=== PATIENT | male | born 1970 | race Caucasian/White ===

== ENCOUNTER 2022-09-11 02:48 | Emergency (ER) | payer BC, SELFPAY ==
--- NOTE | ~2022-09-11 | CT_ITS ---
Non-contrast CT scan of the Abdomen and Pelvis Clinical indication: Abdominal pain Technique: 5 mm axial scans were obtained through the abdomen and pelvis without intravenous or oral contrast. Dose reduction technique was used on this scan by utilizing automated exposure control and iterative reconstruction technique. The dose-length product (DLP) was 517.18 mGy-cm. Findings: Images through the lung bases reveal no abnormalities. There is no evidence of renal or ureteral calculi. The kidneys and the ureters are nondilated. The liver, spleen, pancreas, and adrenals appear normal. Cholecystectomy clips are present. There is no aortic aneurysm. There is no evidence of bowel obstruction. No evidence for appendicitis. Images through the pelvis were performed. There is no evidence of ascites or lymphadenopathy. Urinary bladder unremarkable. Prostate gland and seminal vesicles are unremarkable. Impression: No significant abnormality seen. Status post cholecystectomy. Reviewed, dictated and finalized at [facility]. SUPERVISOR Impression: No significant abnormality seen. Status post cholecystectomy.
[2022-09-11 02:50] VITALS: BP 139/83; PULSE 81; RESP 20; TEMP 36.3; O2SAT 100
--- NOTE | 2022-09-11 03:11 | ED.GENADULT ---
HPI - General Adult General Chief complaint: Nausea/Vomiting/Diarrhea Stated complaint: vomitting History of Present Illness HPI narrative: the patient is a 52-year-old male who developed atrial fibrillation and flutter as well as a depressed ejection fraction as low as 13%. With medical management, Entresto, Jardiance, heart failure medications including furosemide and amiodarone, ejection fraction improved to 49% most recently checked on 04/05/2022. He did have ablation of his atrial fibrillation on September 01, 2022. His ejection fraction has not been checked since that time. He used to be on amiodarone but that has also been discontinued since the ablation. He has been placed on pantoprazole for GERD symptoms. The patient had been reasonably well following his ablation until approximately 24 hours ago, 12:30 a.m., 09/10/2022, when he started developing symptoms of nausea vomiting and diarrhea. No sick contacts. He had approximately 15-20 episodes of emesis in the 24 hours, with dry heaves most recently. He feels weak tired and dehydrated. He had 6 episodes of watery diarrhea. He took an [id number] antidiarrheal agent and that resolved the diarrhea. Does complain of epigastric abdominal discomfort and earlier had a twinge of chest discomfort. He went to [facility] where he waited for several hours in the emergency room. An EKG was done there and blood work but he did not see a provider. He comes here for further evaluation. The patient denies any fevers chills or diaphoresis. No URI symptoms such as cough rhinorrhea or nasal congestion. No dyspnea. No chest pain at present. Does complain of epigastric discomfort still. No hematemesis or hematuria or hematochezia or melena. Related Data Home Medications Medication Instructions Recorded Confirmed apixaban 5 mg tablet (Eliquis) 5 mg PO DAILY 09/11/22 09/11/22 carvedilol 12.5 mg tablet 18.75 mg PO BID 09/11/22 09/11/22 empagliflozin 10 mg tablet 10 mg PO DAILY 09/11/22 09/11/22 (Jardiance) furosemide 40 mg tablet 40 mg PO DAILY 09/11/22 09/11/22 pantoprazole 40 mg tablet,delayed 40 mg PO DAILY 09/11/22 09/11/22 release sacubitril 49 mg-valsartan 51 mg 1 tablet PO BID 09/11/22 09/11/22 tablet (Entresto) spironolactone 25 mg tablet 25 mg PO DAILY 09/11/22 09/11/22 Allergies Allergy/AdvReac Type Severity Reaction Status Date / Time No Known Allergies Allergy Verified 09/11/22 02:57 Review of Systems Review of Systems: All systems reviewed & are unremarkable except as noted in HPI and below Constitutional: Constitutional: Reports no additional constitutional complaints, Denies anorexia, Denies body ache(s), Denies chills, Denies excessive sweating, Reports fatigue, Denies fever(s), Denies frequent falls, Denies headache(s), Reports malaise and Denies poor appetite Eyes: Eyes: Reports no additional eye complaints, Denies blurry vision, Denies change in vision, Denies irritation, Denies itchy eyes and Denies photophobia ENT: Reports system reviewed and no additional complaints, except as documented, Reports Normal hearing present, Denies change in voice, Denies dysphagia, Denies vertigo, Denies dizziness, Denies ear discharge, Denies headache(s), Denies hearing loss, Denies hoarseness, Denies nasal congestion, Denies neck pain, Denies sinus pressure, Denies sore throat and Denies throat swelling Cardiovascular: Cardiovascular: Reports no additional cardiovascular complaints, Denies chest pain, Denies syncope, Denies rapid heart rate, Denies irregular heart rhythm, Denies leg edema, Denies dyspnea and Denies slow heart rate Respiratory: Respiratory: Reports no additional respiratory complaints, Denies cough, Denies dyspnea, Denies stridor and Denies wheezing Gastrointestinal: Gastrointestinal: Reports no additional gastrointestinal complaints, Reports abdominal pain, Denies melena, Denies hematochezia, Denies dysphagia, Reports diarrhea, Reports naus
--- NOTE | 2022-09-11 03:13 | ECG_ITS ---
Measurements Intervals [place] Rate: 78 P: 47 AR: 176 QRS: 20 QRSD: 92 T: 29 QT: 401 QTc: 459 Interpretive Statements SINUS RHYTHM NONSPECIFIC ST & T-WAVE ABNORMALITY BORDERLINE ECG NO PREVIOUS ECG AVAILABLE FOR COMPARISON Electronically Signed On 09-12-2022 14:33:02 [employer] DIRECTOR by Donal Jay M.D.
[2022-09-11] MEDS: SODIUM CHLORIDE 0.9% IV 1,000 ML 999 ML IV CONT ×2 (03:17→03:55)
[2022-09-11] MEDS: METOCLOPRAMIDE HCL INJ 10 MG/2 ML VIAL IV PUSH (03:18)
[2022-09-11] MEDS: ONDANSETRON INJ 4 MG/2 ML VIAL IV PUSH ×2 (03:18→03:53)
[2022-09-11 03:24] VITALS: BP 124/80; PULSE 77; RESP 20; O2SAT 99
[2022-09-11 03:28] LABS: Basophils Absolute Auto 0.02 K/mm3 (0.00-0.10); Basophils Percent Auto 0.2 % (0.0-1.0); Eosinophils Absolute Auto 0.12 K/mm3 (0.02-0.50); Eosinophils Percent Auto 1.4 % (1.0-6.0); Hematocrit 42.4 % (40.0-54.0); Hemoglobin 14.1 g/dL (14.0-18.0); Immature Granulocyte Absolute 0.06 K/mm3 (0.00-0.00); Immature Granulocyte Percent A 0.7 % (0.0-0.0); Lymphocytes Absolute Auto 0.73 K/mm3 (1.10-4.50); Lymphocytes Percent Auto 8.3 % (18.0-42.0); Mean Corpuscular HGB Conc 33.3 g/dL (32.0-36.0); Mean Corpuscular Hemoglobin 30.7 pg (27.0-31.0); Mean Corpuscular Volume 92.2 fL (78.0-102.0); Mean Platelet Volume 9.4 fl (8.7-11.0); Monocytes Percent Auto 9.1 % (2.0-11.0); Neutrophils Percent Auto 80.3 % (50.0-70.0); Platelet Count Result 192 K/mm3 (150-420); Red Cell Distribution Width 12.6 % (11.6-14.4); White Blood Count 8.8 K/mm3 (4.8-10.8)
[2022-09-11 03:45] LABS: Lactic Acid Reflex 1.4 mmol/L (0.4-2.0)
--- NOTE | 2022-09-11 03:45 | PC.NURSE ---
Pt dry heaving again, unable to relax or get comfortable, c/o heartburn and belching sxs, then n/v starts, Call to Dr Bryson, order obtained.
[2022-09-11] MEDS: LORazepam INJ (*CRX) 2 MG/ML VIAL 0.5 MG IV PUSH (03:53)
[2022-09-11 03:59] LABS: Alanine Aminotransferase 231 U/L (16-63); Albumin Level 3.8 g/dL (3.4-5.0); Alkaline Phosphatase 162 U/L (46-116); Amylase 19 U/L (25-115); Anion Gap 11 mmol/L (8-16); Aspartate Amino Transferase 190 U/L (15-37); Bilirubin,Total 1.7 mg/dL (0.00-1.00); Blood Urea Nitrogen 20 mg/dL (7-18); Calcium 8.7 mg/dL (8.5-10.1); Carbon Dioxide 25 mmol/L (21-32); Chloride 104 mmol/L (98-108); Estimated CRCL calculation 55 ml/min; Estimated Glomerular Filt Rate 51; Glucose 139 mg/dL (70-99); Lipase 16 U/L (16-77); Magnesium 1.7 mg/dL (1.8-2.4); NT Pro B Type Natriuretic Pept 227 pg/mL (0-125); Osmolality Calculated 294 mOsm/kg (285-295); Potassium 3.4 mmol/L (3.5-5.1); Sodium 140 mmol/L (136-145); Total Protein 7.6 g/dL (6.4-8.2); Troponin I 5.2 ng/L (0.00-60.4)
[2022-09-11 04:01] LABS: Ethanol < 3 mg/dL (0-6)
[2022-09-11 04:02] VITALS: BP 100/48; PULSE 84; RESP 18; O2SAT 96
[2022-09-11] MEDS: MAGNESIUM SULF 2 GM/WATER 50ML 2 GM/50 ML BAG IVPB (04:33)
--- NOTE | 2022-09-11 04:50 | PC.NURSE ---
Pt sleeping on side, no n/v at this time. IVF infusing per order. Pt awakens easily and reports feeling some better.
[2022-09-11] MEDS: SODIUM CHLORIDE 0.9% IV 1,000 ML 200 ML IRRIGATION (05:31)
[2022-09-11] MEDS: KCL 20 MEQ/SW 100 ML 100 ML 50 MEQ IVPB (05:32)
[2022-09-11 05:34] VITALS: BP 103/64; PULSE 78; RESP 18; O2SAT 98
[2022-09-11 06:01] LABS: SARS-CoV-2 RNA PCR Negative (Negative)
--- NOTE | 2022-09-11 06:19 | PC.NURSE ---
Pt sleeping, IVF infusing as per order, awaiting CT results. Call viramontes at pt. side.
[2022-09-11 07:10] VITALS: BP 107/65; PULSE 78; RESP 20; TEMP 36.6; O2SAT 97
== END 2022-09-11 07:11 | disposition home or self-care (01) ==
PROVIDERS: Emergency Provider Emergency Medicine
DX: R11.2 Nausea with vomiting, unspecified (principal); R19.7 Diarrhea, unspecified; E86.0 Dehydration; E87.6 Hypokalemia; E83.42 Hypomagnesemia; N17.9 Acute kidney failure, unspecified; I48.91 Unspecified atrial fibrillation; Z79.01 Long term (current) use of anticoagulants; Z20.822 Contact with and (suspected) exposure to COVID-19; Z79.899 Other long term (current) drug therapy
CPT/HCPCS: 36415; 74176; 80053; 80307; 82150; 83605; 83690; 83735; 83880; 84484; 85025; 93005; 96361; 96365; 96367; 96375; 96376; 99284; J2060; J2405; J2765; J3475; J3480; J7030; U0003; U0005